=== PATIENT | female | born 1985 | race Caucasian/White ===

== ENCOUNTER 2018-11-15 23:51 | Emergency (ER) | payer OTHER, SELFPAY ==
[2018-11-15 23:53] VITALS: BP 155/90; PULSE 77; RESP 18; TEMP 36.6; O2SAT 98; BMI 39.5
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
[2018-11-16] MEDS: HYDROcodone Bitartrate/Apap 5/325 Tablet PO (00:02)
[2018-11-16 00:55] VITALS: BP 138/96; PULSE 85; RESP 18; O2SAT 100
== END 2018-11-16 00:56 | disposition home or self-care (01) ==
LOC: ED 11-16 00:39
PROVIDERS: Emergency Provider Emergency Medicine
DX: S80.11XA Contusion of right lower leg, initial encounter (principal); S39.012A Strain of muscle, fascia and tendon of lower back, initial encounter; V40.6XXA Car passenger injured in collision with pedestrian or animal in traffic accident, initial encounter; Y93.9 Activity, unspecified; Y92.9 Unspecified place or not applicable; Y99.9 Unspecified external cause status
CPT/HCPCS: 72170; 73590; 99284

== ENCOUNTER → 2021-09-07 | Outpatient (CLI) | payer BC, SELFPAY ==
--- NOTE | 2021-09-07 | EMB_PTH ---
PATIENT: SAHRA DOMINGO LOC: [facility] U#:[id number] AGE/SX: 35/F ROOM: RE09/07/[address]: Dr. Adonis Hook MD : 1985 BED: DIS: 09/07/2021 SPEC #: [id number] RECD: 09/08/21 08:56 STATUS: LIAM REHarish #: [id number] ANDREW: 09/07/21 00:[address]: Adonis Hook DEPT: SURGICAL PATHOLOGY RECD BY: Marc Saldaña ENTERED: 09/08/21 08:56 SP TYPE: ENDOM BX/C NARA DR: No Primary Care Phys Tissues: Endometrium, NOS Procedures: Surgery Specimen Level IV HEADER OPERATION: Endometrial biopsy PRE-OP DIAGNOSIS: Menorrhagia TISSUE SUBMITTED: Endometrial biopsy MICROSCOPIC DIAGNOSIS Endometrial biopsy: Consistent with exogenous hormone effects with focal stromal breakdown and blood. See comment. ELISABETH:flory 09/09/2021 COMMENT The specimen predominantly consists of blood. MICROSCOPIC DESCRIPTION Slides are reviewed. GROSS DESCRIPTION Received in fixative is one container labeled with the patient's name and designated EM biopsy. The specimen consists of multiple fragments of hemorrhagic tissue that in aggregate measure 2 x 2 x 0.2 cm. The specimen is totally submitted in one cassette. / SJ:rg 09/08/21 TC:5 CPT: 13853
[2021-09-12 19:57] LABS: HPV Reflexed? NOT INDICATED
== END | disposition home or self-care (01) ==
LOC: LABSPEC 12:16
PROVIDERS: Visit Provider Obstetrics & Gynecology
DX: N92.0 Excessive and frequent menstruation with regular cycle (principal); Z12.4 Encounter for screening for malignant neoplasm of cervix
CPT/HCPCS: 88175; 88305; G0145

== ENCOUNTER 2022-01-09 07:53 | Day surgery (SDC) | payer BC, SELFPAY ==
[2022-01-04 11:12] LABS: Hematocrit 46.9 % (37-47); Hemoglobin 16.2 g/dL (12.0-15.0); Mean Corp Hgb Conc 34.5 g/dL (32-36); Mean Corpuscular Hgb 30.6 pg (27.0-32.0); Mean Corpuscular Volume 88.7 fL (81-99); Mean Platelet Vol. 11.4 fl (6.2-12.0); Platelet Count 180 K/mm3 (150-450); RBC Distribution Width CV 13.5 % (11.6-14.6); RBC Distribution Width SD 43.8 fl (35.1-43.9); Red Blood Count 5.29 M/mm3 (4.2-5.4)
[2022-01-04 11:37] LABS: International Normalized Ratio 0.9; Prothrombin Time (Protime)PT. 11.9 SECONDS (11.7-14.9)
[2022-01-04 11:38] LABS: Partial Thromboplast Time 29.1 Seconds (24.1-36.2)
[2022-01-04 12:01] LABS: Thyroid Stim Hormone (TSH) 1.77 uIU/mL (0.358-3.74)
--- NOTE | 2022-01-08 18:59 | PCM.HP.BLA ---
History and Physical Date of Admission: 01/09/22 Surgical History and Physical Krys Mcmillan, a 36 year old female 3 0 1 0 3, presents for HTA, Hysteroscopy and D and C on January 09, 2022. -- Menorrhagia -- Heavy menses which began months ago. Krys claims it started gradually It occurs with menses. Additional comments are: pelvic u/s normal;; EMBx normal a few weeks ago. MEDICATIONS HISTORY: ALLERGIES: Pcn, Penicillins, Hives and/or rash, Latex and Rash Infections - Chicken pox Illnesses - Depression Accidents - None Hospitalizations - see surgery Review of Systems: GENERAL - Denies fever, or chills SKIN - Denies skin changes EYES - Denies visual changes EARS - Denies difficulty hearing NOSE - Denies nasal congestion or bleeding MOUTH - Denies sore throat or difficulty swallowing NECK - Denies pain or swelling RESPIRATORY - Denies shortness of breath or wheezing CARDIOVASCULAR - Denies palpitations or chest pain GASTROINTESTINAL - Denies nausea, vomiting, diarrhea, constipation GENITOURINARY - Denies dysuria, frequency of urination, incontinence of urine MUSCULOSKELETAL - Denies joint or muscle pain NEUROLOGICAL - Denies localized numbness or weakness PSYCHIATRIC - Denies depression or anxiety ENDOCRINE - Denies heat or cold intolerance, weight loss or gain HEMATO-IMMUNOLOGIC - Denies excesive bleeding with cuts SOCIAL HISTORY: Alcohol Use - RARELY Smoking - 1 PPD Diet - LACTOSE FREE Lifestyle - moderate stress lifestyle and Exercise - minimal Seat Belt Use - always Employer - [employer] Job Description - [employer] Illicit Drug Use - None Sexual Activity - Children Name(s) - Domonique Morales, and Eric Control - Prior Tubal FAMILY HISTORY: Mother: DM I. MENSTRUAL HISTORY: LMP Known?- DefiniteAmount/Duration - 3-5 DAYS, Regularity - Irregular, LMP - 12/26/21 PAST PREGNANCIES: Total Pregnancies - 4; Full Term Pregnancies - 3; Premature - 0; Abortions, Induced - 0; Abortions, Spontaneous - 1; Ectopics - 0; Multiple Births - 0; Living Children - 3 SURGICAL HISTORY: 1. 03/09/2007 ; Ozzie Conde MD - 2. 03/08/1999 Appendectomy ; - 3. 05/30/2009 ; Tammie Umana M.D. - PHYSICAL EXAM BP- 112/68 Sitting, Right arm, regular cuff Weight- 198.0 lbs Height- 65 inch BMI:33.0 CONSTITUTIONAL - NAD, well nourished, and well developed SKIN - No rash, lesions, or ulcers HEENT - Normocephalic, PERRLA, EOMI NECK - No nodes, no nuchal rigidity and thyroid normal size and texture LYMPH NODES - Palpation of lymph nodes in neck and groins within normal limits LUNGS - CTA x2 without wheezes, crackles or rales CARDIAC - Regular rate and rhythm without rubs, murmurs, or gallops BREAST - No dominant masses, no tenderness, no axillary adenopathy, no nipple discharge, no skin changes ABDOMEN - Without hepatosplenomegaly, distention, masses, rebound, or guarding; normal bowel sounds; no hernias EXTREMITIES - No edema or calf tenderness NEUROLOGICAL - Cranial nerves II-XII grossly intact PSYCHIATRIC - A and O to time, place, person, mood and affect External Genitial Vagina - non-tender without lesions Urethra/Urethral Meatus - non-tender Bladder - non-tender Vagina - vaginal kim are pink and moist without loss of rugae and no evidence of atropy and blood in vagina Cervix - without cervical motion tenderness and has normal size and features without evident lesions and IUD string in place Uterus - multiparous size 6 cm & wt 75-125 g Adnexa - clear without massess or tenderness ASSESSMENT/PLAN: 1. Menorrhagia Discussed options for treatment at length including Depoprovera and ablation. Desires the ablation. EMBx and pelvic u/s ok. Plan Dx H/S, D and C, and HTA. Discussed RBAs and all questions answered. IUD removed.
[2022-01-09] VITALS (8 sets, daily range): BP systolic 99–123; BP diastolic 55–78; PULSE 65–78; RESP 16; TEMP 25.5–36.8; O2SAT 95–98; BMI 33.5
[2022-01-09] MEDS: Lactated Ringers 1,000 ML 15 ML IV (09:16)
[2022-01-09] MEDS: Cefotetan 2 GM in 0.9% NS 100 ML IV (10:08)
[2022-01-09] MEDS: Lubricating Jelly 60 GM Tube 30 GM (10:17)
[2022-01-09] MEDS: Oxytocin 10 UNITS/ML Vial (10:30)
--- NOTE | 2022-01-09 10:30 | EMB_PTH ---
PATIENT: SAHRA DOMINGO LOC: [facility] U#:[id number] AGE/SX: 36/F ROOM: RE01/09/[address]: Dr. Adonis Hook MD : 1985 BED: DIS: 01/09/2022 SPEC #: [id number] RECD: 01/09/22 12:12 STATUS: LIAM REHarish #: [id number] ANDREW: 01/09/22 10:[address]: Adonis Hook DEPT: SURGICAL PATHOLOGY RECD BY: Amada Miranda ENTERED: 01/09/22 12:42 SP TYPE: ENDOM BX/C NARA DR: No Primary Care Phys Tissues: Endometrium, NOS Procedures: Surgery Specimen Level IV HEADER OPERATION: Hysteroscopy, dilation and curettage, hydrothermal ablation PRE-OP DIAGNOSIS: Menorrhagia TISSUE SUBMITTED: Endometrial curettings MICROSCOPIC DIAGNOSIS Endometrial curettings: Disordered proliferative endometrium. SJ:flory 01/10/2022 COMMENT Please make reference to previous specimen ([id number]) endometrial biopsy with diagnosis of consistent with exogenous hormone effects with stromal breakdown. Case has been reviewed in consultation with Dr. Mendoza who concurs with the above diagnosis. IDC:AM MICROSCOPIC DESCRIPTION Slides are reviewed. GROSS DESCRIPTION Received in fixative is one container labeled with the patient's name and designated endometrial curettings. The specimen consists of multiple irregular fragments of red-kay soft tissue that in aggregate measure 5.5 x 3.5 x 0.2 cm. The specimen is totally submitted in two cassettes. / AM:flory 01/09/2022 TC:5 CPT: 56538
--- NOTE | 2022-01-09 10:45 | OP.PCM_ITS ---
Report of Operation Date of Procedure: 01/09/22 Pre-Operative Diagnosis: Menorrhagia Post-Operative Diagnosis: Menorrhagia Surgery/Procedure Performed:: Diagnostic Hysteroscopy, Dilation and Curettage, Hydrothermal Ablation Description of Surgical Findings:: 8 cm endometrial cavity without polyps or fibroids present. Cervix which prolapsed to within 2 cm of the introitus with tenaculum pulldown and moderate cystocele noted. Surgeon: Adonis Hook Type of Anesthesia: MAC Anesthesiologist: Ramírez Hook Specimen's removed: Endometrial curettings Estimated Blood Loss (mL): Minimal Fluids Replaced: Crystalloid Description of Procedure: Surgeon: Adonis Hook MD, FACOG Indication: This is a 36 year old patient who has been having problems with extremely heavy menses. Conservative measures have not been helpful. Endometrial sampling was benign and pelvic ultrasound showed that ablation may be helpful. Patient had a prior tubal ligation done. Pt has been counseled regarding the risks, benefits and alternatives of this procedure and all questions answered. She understands that only about half of patients will have amenorrhea after this procedure. Procedure: Patient taken to the operating room where after induction of general anesthesia the patient was prepped and draped in the usual sterile fashion. Bladder was drained of urine with a catheter. Anterior cervix grasped and cervix was dilated to about 17 Jordanian size. Hysteroscopic hydrothermal ablation (HTA) unit was place in the cervix and the above findings were noted. HTA unit was removed and the uterus was gently curreted removing all contents. An HTA ablation cycle was then carried out at about 90 degrees Centigrade for 10 minutes with virtually no fluid loss during the procedure. After an appropriate cool down the HTA unit was removed with minimal bleeding noted. The patient tolerated the procedure well and was taken to the recovery room in satisfactory condition. Sponge, instruments and needle counts were all correct. There were no apparent complications of the surgery. Cefotetan 10 2 gms IV was given prior to the procedure. Estimated Blood Loss: Minimal Specimen to Pathology: Endometrial Curettings Grafts/Implants Used: None Admit VTE Documentation VTE Present on Admission: Yes VTE Mechan Device Prophylaxis: SCD's
--- NOTE | 2022-01-09 10:48 | PCM.DC ---
Discharge Instructions Diet Discharge Diet: No restrictions Activity Discharge Activity: Return to Normal Activity, May Shower and May Take a Tub Bath May resume sexual activity in: 3 weeks Additional Activity Instructions:: Nothing in the vagina for 3-4 weeks please. Use Ibuprophen 800 mg orally every 8 hours as needed for pain. Can also add Tylenol 1000 mg every 8 hours if needed for pain. If Ibuprophen and Tylenol are not effective then use the Oxycodone but keep in mind it can cause serious constipation issues. Drink lots of water. Call if bleeding more than a pad per hour. Clear to brownish discharge will last for about 3 weeks. Dressing / Incision Call your doctor if you observe: Fever of 101 or Higher, Inability to urinate, Inability to have a bowel movement and Using more than 1 pad per hour Follow Up Care Please Follow Up With: Adonis Hook MD When: 3 to 4 weeks Test Results: Test results from this visit will be discussed in further detail at your follow-up appointment, if applicable. Discharge Plan Admission Primary Reason for Your Visit: Endometrial Ablation Attending Provider: Adonis Hook Primary Care Provider: Care PhysicianKaycee Primary Discharge Orders/Prescriptions Prescriptions: New oxycodone 5 mg capsule 5 mg PO Q6H PRN (Reason: pain (scale score 7-10)) 7 Days Qty: 7 RF: 0 Continued multivitamin Tablet 1 tab PO DAILY RF: 0 Referrals / Follow Up: Care PhysicianKaycee Primary [Primary Care Provider] - Disposition Disposition (needs filled in before D/C Order can be placed): Home, Self Care
[2022-01-09] MEDS: Acetaminophen 500 MG Tablet 1000 MG PO (12:03)
== END 2022-01-09 14:00 | disposition home or self-care (01) ==
LOC: SDC 07:56 → AC 07:59
PROVIDERS: Visit Provider Obstetrics & Gynecology
PROC: 0U5B8ZZ Destruction of Endometrium, Via Natural or Artificial Opening Endoscopic (ICD-10-PCS; CPT 58563; principal; 2022-01-09 10:15)
DX: N92.0 Excessive and frequent menstruation with regular cycle (principal); Z30.432 Encounter for removal of intrauterine contraceptive device; F17.200 Nicotine dependence, unspecified, uncomplicated
CPT/HCPCS: 58558; 58353; 00952; 36415; 84443; 85027; 85610; 85730; 86850; 86900; 86901; 87426; 88305; J7120; J2405